=== PATIENT | female | born 1960 | race Caucasian/White ===

== ENCOUNTER 2016-12-19 08:18 | Emergency (ER) | payer OTHER ==
[~2016-12-19] VITALS: Ht 165.1 cm; Wt 86.3 kg
[2016-12-19] MEDS ORDERED: ATEN50TA9 PO (08:29)
[2016-12-19] MEDS ORDERED: IBUP-1114 PO (08:29)
[2016-12-19] MEDS ORDERED: SIMV20TA2 (08:29)
[2016-12-19] MEDS ORDERED: INVO300T (08:29)
[2016-12-19] MEDS ORDERED: FORT500T3 (08:29)
[2016-12-19] MEDS ORDERED: GLIP5TAB8 PO (08:30)
[2016-12-19] MEDS ORDERED: ALOG25TA PO (08:30)
[2016-12-19] MEDS ORDERED: ONDANSETRON 4MG/2ML VIAL (J2405) IV ONE (10:45)
[2016-12-19 11:22] LABS: ANION GAP 9 MEQ/L (8-16); BLOOD UREA NITROGEN 22 MG/DL (7-18); CALCIUM LEVEL 9.3 MG/DL (8.5-10.1); CARBON DIOXIDE LEVEL 28 MEQ/L (21-32); CHLORIDE LEVEL 103 MEQ/L (98-107); CREATININE FOR GFR 0.86 MG/DL (0.55-1.02); GLOMERULAR FILTRATION RATE > 60.0 (>51); GLUCOSE, FASTING 150 MG/DL (70-105); POTASSIUM SERUM 3.5 MEQ/L (3.5-5.1); SODIUM LEVEL 140 MEQ/L (136-145)
[2016-12-19 11:31] LABS: BASO % 0.6 % (0.0-1.0); EOS # 0.2 K/mm3 (0.0-0.50); EOS % 2.5 % (0.0-3.0); LARGE UNSTAINED CELL # 0.1 K/mm3 (0.0-0.4); LYMPH # 1.5 K/mm3 (1.5-4.5); LYMPH % 23.5 % (24.0-44.0); MEAN CORPUSCULAR HEMOGLOBIN 32.2 pg (27.0-33.0); MEAN CORPUSCULAR HGB CONC 35.1 g/dl (32.0-36.5); MEAN CORPUSCULAR VOLUME 91.7 fl (80.0-96.0); MONO # 0.4 K/mm3 (0.0-0.8); NEUTROPHILS # 4.3 K/mm3 (1.8-7.7); NEUTROPHILS % 65.4 % (36.0-66.0); PLATELET COUNT, AUTOMATED 127 k/mm3 (150-450); WHITE BLOOD COUNT 6.6 K/mm3 (4.0-10.0)
--- NOTE | 2016-12-19 14:23 | REP ---
Clinical: Positional vertigo and headaches. Technique: Standard pre and postcontrast MRI of the brain sequencing using 25 ml ProHance gadolinium based contrast. Findings: Pre and postcontrast MRI images of the brain demonstrate normal layne white differentiation, ventricles, and sulci. No abnormal signal intensity foci, mass lesion, fluid/edema, infarction or evidence for trauma noted. Midline and midbrain structures are intact and symmetric. No abnormal enhancement. Sinuses are clear. Orbits are normal. Calvarium is intact. Impression: Normal pre and postcontrast MRI of the brain. Signed by Chandler Kramer MD 12/19/2016 02:14 P
--- NOTE | 2016-12-19 14:24 | REP ---
Clinical: Positional vertigo and headaches Comparison: None Technique: Axial 3-D [id number] noncontrast source images with 3-D multiplanar re-formations. Findings: Vasculature to the bilateral hemispheres appears symmetric and normal without areas of attenuation to suggest occlusion or stenosis. No evidence for arteriovenous malformation or aneurysm. No obvious abnormality. Impression: Normal MRA of the brain. Signed by Chandler Kramer MD 12/19/2016 02:15 P
[2016-12-19] MEDS ORDERED: MECLIZINE 25 MG TABLET PO ONE (16:30)
[2016-12-19] MEDS: ONDANSETRON 4MG/2ML VIAL (J2405) IV ONE ×2 (16:30→16:57)
[2016-12-19] MEDS ORDERED: MECL-68 PO ×2 (17:18→18:03)
[2016-12-19] MEDS ORDERED: ZOFR4TAB3 PO ×2 (17:18→18:03)
[2016-12-19 18:00] VITALS: BP 145/72
--- NOTE | 2016-12-19 18:03 | ECGEPIP ---
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
--- NOTE | 2016-12-20 01:37 | REP ---
Clinical: Positional vertigo. Technique: Axial contrast enhanced 2-D [id number] source images using 25 ml ProHance gadolinium based contrast material with multiplanar MIP and MPR sequences. Findings: The bilateral common carotid arteries are symmetric and normal. Small amounts of atheromatous plaquing identified at the carotid bulbs and proximal internal/external carotid arteries bilaterally (right greater than left) without significant occlusion or narrowing. Bilateral vertebral arteries are symmetric and normal. Impression: Minimal amount of narrowing of the carotid bulbs and proximal internal carotid arteries felt to be in the less than 50% range bilaterally (right greater than left). Signed by Chandler Kramer MD 12/20/2016 01:28 A
== END 2016-12-19 18:11 | disposition home or self-care (01) ==
LOC: M ED 08:18
DX: R42 Dizziness and giddiness (principal); E11.9 Type 2 diabetes mellitus without complications; Z90.79 Acquired absence of other genital organ(s); Z90.89 Acquired absence of other organs

== ENCOUNTER → 2017-03-23 | Outpatient (CLI) | payer OTHER ==
[~2017-03-23] MED LIST: ALOG25TA PO; ATEN50TA9 PO; FORT500T3; GLIP5TAB8 PO; IBUP-1114 PO; INVO300T; MECL-68 PO; PROHANCE 279.3MG/ML 15ML VIAL (A9576) As Ordered ONE; PROHANCE 279.3MG/ML 5ML VIAL (A9576) As Ordered ONE; SIMV20TA2; ZOFR4TAB3 PO
[2017-03-23 09:35] LABS: BLOOD UREA NITROGEN 30 MG/DL (7-18); CREATININE FOR GFR 0.83 MG/DL (0.55-1.02); GLOMERULAR FILTRATION RATE > 60.0 (>51)
--- NOTE | 2017-03-23 14:26 | REP ---
MR IACS WITHOUT AND WITH CONTRAST: HISTORY: Right labyrinthitis. CONTRAST: ProHance 16.8 mL. COMPARISON: 12/19/2016 There are no areas of abnormal signal intensity in the brain. There is no intraparenchymal hemorrhage, infarct, mass, or midline shift. There is no abnormal enhancement. The ventricular system is normal in appearance. There is no extracerebral collection. There is no cerebellopontine angle mass. The inner ear structures are normal in appearance. The mastoid air cells and sinuses are clear. IMPRESSION: There is no intracranial lesion. Signed by Roberto Rebolledo MD 03/23/2017 02:33 P
== END ==
LOC: M LAB 08:46
PROVIDERS: ATTEND Otolaryngology
DX: H83.01 Labyrinthitis, right ear (principal)
CPT/HCPCS: 36415; 70553; 82565; 84520; A9576

== ENCOUNTER 2018-04-05 18:31 | Emergency (ER) | payer OTHER ==
[2018-04-05 19:07] LABS: HEMATOCRIT 40.7 % (36.0-47.0); HEMOGLOBIN 14.1 g/dl (12.0-15.5); MEAN CORPUSCULAR HEMOGLOBIN 31.1 pg (27.0-33.0); MEAN CORPUSCULAR HGB CONC 34.6 g/dl (32.0-36.5); MEAN CORPUSCULAR VOLUME 89.6 fl (80.0-96.0); PLATELET COUNT, AUTOMATED 140 10^3/uL (150-450); RED BLOOD COUNT 4.54 10^6/uL (4.00-5.40); RED CELL DISTRIBUTION WIDTH 13.1 % (11.5-14.5); WHITE BLOOD COUNT 8.7 10^3/uL (4.0-10.0)
[2018-04-05 19:34] LABS: ANION GAP 11 MEQ/L (8-16); BLOOD UREA NITROGEN 34 MG/DL (7-18); CALCIUM LEVEL 9.7 MG/DL (8.5-10.1); CARBON DIOXIDE LEVEL 27 MEQ/L (21-32); CHLORIDE LEVEL 100 MEQ/L (98-107); CREATININE FOR GFR 0.91 MG/DL (0.55-1.30); GLOMERULAR FILTRATION RATE > 60.0 (>51); GLUCOSE, FASTING 99 MG/DL (70-100); POTASSIUM SERUM 3.7 MEQ/L (3.5-5.1); SODIUM LEVEL 138 MEQ/L (136-145)
[2018-04-05] MEDS ORDERED: ISOVUE-370 76% 100ML VIAL (Q9967) As Ordered (19:53)
[2018-04-05] MEDS: NS 1,000 ML IV (20:02)
[2018-04-05 20:13] LABS: KETONE, URINE AUTO RFX NEGATIVE (NEGATIVE); LEUKOCYTE ESTERASE UR AUTO RFX NEGATIVE (NEGATIVE); NITRITE, URINE AUTO RFX NEGATIVE (NEGATIVE); RBC, URINE AUTO RFX 0 /HPF (0-3); SPECIFIC GRAVITY UR AUTO RFX 1.014 (1.002-1.035); SQUAM EPITHELIAL CELL UR AURFX 0 /HPF (0-6); WBC, URINE AUTO RFX 0 /HPF (0-3)
[2018-04-05] MEDS: NORCO 5/325MG TABLET (BULK FOR ED) PO (22:27)
== END 2018-04-05 22:39 | disposition home or self-care (01) ==
LOC: M ED 18:31
DX: K43.9 Ventral hernia without obstruction or gangrene (principal); E11.9 Type 2 diabetes mellitus without complications; I10 Essential (primary) hypertension; Z79.84 Long term (current) use of oral hypoglycemic drugs; Z79.899 Other long term (current) drug therapy; Z88.0 Allergy status to penicillin
CPT/HCPCS: Q9967

== ENCOUNTER 2018-06-16 07:45 | Day surgery (SDC) | payer OTHER ==
[~2018-06-16] VITALS: Ht 167.6 cm; Wt 82.3 kg
[~2018-06-16 07:45] MED LIST changes: +LR 1,000 ML IV ONE; +NORCOTAB PO; -PROHANCE 279.3MG/ML 15ML VIAL (A9576) As Ordered ONE; -PROHANCE 279.3MG/ML 5ML VIAL (A9576) As Ordered ONE; +STEG15TA PO; +TRAM50TA2 PO; +ZOFR4TAB14 PO; -ZOFR4TAB3 PO
[2018-06-16] MEDS ORDERED: PROPOFOL 200 MG/20 ML VIAL As Ordered ONE (08:15)
[2018-06-16] MEDS ORDERED: LIDOCAINE 2% INJ 100 MG/5 ML SDV (FOR ANES.) As Ordered ONE (08:15)
[2018-06-16] MEDS ORDERED: ROCURONIUM BROMIDE 50 MG/5 ML VIAL As Ordered ONE ×2 (08:15→12:30)
[2018-06-16] MEDS ORDERED: dexameTHASONE 4 MG/ML 1ML VIAL (J1100) As Ordered ONE (08:15)
[2018-06-16] MEDS ORDERED: ONDANSETRON 4MG/2ML VIAL (J2405) As Ordered ONE ×2 (08:15→14:18)
[2018-06-16] MEDS ORDERED: MIDAZOLAM INJ 2 MG/2 ML VIAL (J2250) As Ordered ONE (08:16)
[2018-06-16] MEDS ORDERED: fentaNYL 250 MCG/5 ML INJECTION (J3010) As Ordered ONE (08:16)
[2018-06-16] MEDS ORDERED: BUPIVACAINE LIPOSOME/PF 1.3% 20ML VIAL (13.3MG/ML)(EXPAREL)(C9290 PER1MG) As Ordered ONE (10:56)
[2018-06-16] MEDS ORDERED: BUPIVACAINE HCL 0.25% 30 ML VIAL As Ordered ONE (10:56)
[2018-06-16] MEDS ORDERED: GLYCOPYRROLATE INJ 0.2 MG/ML 2 ML VIAL As Ordered ONE ×2 (11:31→12:52)
[2018-06-16] MEDS ORDERED: KETOROLAC 60 MG/2 ML VIAL (J1885) As Ordered ONE (12:52)
[2018-06-16] MEDS ORDERED: NEOSTIGMINE 10 MG/10 ML VIAL (J2710) As Ordered ONE (12:52)
[2018-06-16] MEDS ORDERED: NORCOTAB PO (13:44)
[2018-06-16] MEDS ORDERED: NORCO, ANEXSIA 5/325MG TABLET (HYDROcodone/ACETAMINOPHEN) PO PRN (14:15)
[2018-06-16] MEDS ORDERED: IBUPROFEN 400 MG TAB PO PRN (14:15)
[2018-06-16] MEDS ORDERED: ACETAMINOPHEN TAB 650MG DOSE (2X325MG) PO PRN (14:15)
[2018-06-16] MEDS ORDERED: MEPERIDINE INJ 25 MG/ML VIAL (J2175) IV PRN (14:30)
[2018-06-16] MEDS ORDERED: ONDANSETRON 4MG/2ML VIAL (J2405) IV PRN (14:30)
[2018-06-16] MEDS ORDERED: PERCOCET 5MG/325MG TAB PO PRN (14:30)
[2018-06-16] MEDS ORDERED: LR 1,000 ML IV SCH (14:30)
[2018-06-16] MEDS ORDERED: fentaNYL 100 MCG/2 ML INJECTION (J3010) IV PRN (14:30)
[2018-06-16] MEDS ORDERED: METOCLOPRAMIDE INJ 10MG/2ML VIAL (J2765) IV PRN (14:30)
[2018-06-16 15:35] VITALS: BP 133/64
--- NOTE | 2018-06-18 13:26 | RO ---
DATE OF PROCEDURE: 06/16/2018 PREOPERATIVE DIAGNOSIS: Ventral incisional hernia. POSTOPERATIVE DIAGNOSIS: Ventral incisional hernia. PROCEDURE PERFORMED: Laparoscopic repair of a ventral incisional hernia with a 15 cm Parietex patch. SURGEON: Boris Hensley MD HR BUSINESS PARTNER: Dr. Muniz who was required for management of the camera while performing the procedure. ANESTHESIA: General. INDICATIONS FOR PROCEDURE: The patient is a 58-year-old woman who has a ventral incisional hernia, which appears to be just slightly below and to the left of the umbilicus. She is now for a laparoscopic ventral incisional hernia repair. OPERATIVE PROCEDURE: The patient was brought to the operating room and placed on the table in a supine position. She was placed under general endotracheal anesthesia. The patient's abdomen was prepped and draped in a sterile fashion. Initial entry was in the right midabdomen. Local anesthesia of 0.25% Marcaine was infiltrated and a short incision was made. A Veress needle was inserted and after positive hanging drop test the abdomen was insufflated with carbon dioxide gas. A 5 mm port was placed over a 5 mm scope and this was advanced through the abdominal wall without difficulty. Initial inspection showed some adhesions of the omentum to the anterior abdominal wall at the umbilicus and extending inferiorly from that approximately along the midline. A second 5 mm trocar was placed lower in the right lower quadrant. A harmonic scalpel was inserted and the adhesions of the omentum to the anterior abdominal wall were divided and the omentum was allowed to fall way. In the course of dissection, the patient was found to have an approximately 6-7 cm oval fascial defect beginning just below the level of the umbilicus extending inferiorly. This appeared to be slightly to the left of the midline. There were no other defects identified higher in the abdomen. The patient was tilted to a slight Trendelenburg position. At this point, I elected to make an incision along the midline just below the umbilicus. The fascial defect was such that I thought it could be closed primarily with the reinforcing mesh placed internally over top of this repair. An approximately 6 cm midline incision was made. This was deepened through the subcutaneous tissues using the cautery. A large hernia sac was identified and this was dissected free from surrounding subcutaneous fat down to the level of the fascia. The sac was sent for permanent pathology. Inspection revealed that there was an approximately 6 cm long x 4 cm wide defect. There were areas of stronger fascia along the right side of the defect with some thinner fascia on the left upper aspect of the defect. The subcutaneous tissues were elevated off of the fascia extending out from the midline approximately 5 cm on both sides to release some tension on the fascia. Trial approximation suggested that this tissue could be closed along the midline. A 15 cm Parietex patch was selected. This was moistened and then the midline was marked with a skin marker. The mesh was inserted into the abdomen through the fascial opening with the nonadherent side facing the intestine. The midline defect was then approximated with interrupted simple sutures of #1-0 Ethibond. The midpoint suture was placed early in the closure taking a small bite of the midpoint of the mesh to affix it over the center of the fascial closure. Once the defect had been completely closed, the abdomen was again inflated but only to a pressure of 8 mmHg. The laparoscope was inserted. A third 5 mm trocar was placed slightly to the left midline in the left upper quadrant. Then using SecureStrap tacker, the mesh was placed flat over the anterior abdominal wall and tacked in place. Multiple SecureStrap tacks were placed around the periphery of the mesh circumferentially with multiple tacks also along the midline and in a radial fashion from the midpoint out toward the edge. A total of 75 tacks were placed to hold the mesh in place. There was a small amount of bleeding on the left lower portion of the application which stopped after a short period of observation. Final inspection revealed no bleeding. The mesh was nicely applied flat to the anterior abdominal wall. 20 mL of Exparel was mixed with 20 mL of 0.25% Marcaine and while monitoring the injections from within the abdomen laparoscopically. This was injected widely over the area of placement of the mesh. Small amounts were injected along the trocar sites as well. The abdomen was then deflated and the trocars were removed. The infraumbilical incision was closed with some #0 chromic in the subcutaneous fat. The skin edges were brought into apposition with some buried #3-0 chromic and the skin incisions were all closed with buried #5-0 Vicryl and Steri-Strips. Light dressings were applied. The patient tolerated the procedure well without apparent complication. She was awakened in the operating room, extubated and moved to the recovery room in stable condition.
== END 2018-06-16 16:17 | disposition home or self-care (01) ==
LOC: M SDC 07:45
PROVIDERS: ATTEND Surgery
DX: K43.2 Incisional hernia without obstruction or gangrene (principal); E11.9 Type 2 diabetes mellitus without complications; K21.9 Gastro-esophageal reflux disease without esophagitis; Z79.84 Long term (current) use of oral hypoglycemic drugs; Z79.899 Other long term (current) drug therapy; Z88.0 Allergy status to penicillin
CPT/HCPCS: 49652; 88302; C1781; C9290; J1100; J1885; J2250; J2405; J2710; J3010

== ENCOUNTER 2020-07-17 09:32 | Emergency (ER) | payer OTHER ==
[~2020-07-17] VITALS: Ht 167.6 cm; Wt 79.8 kg
[~2020-07-17 09:32] MED LIST changes: +HYDR-3715 PO; -LR 1,000 ML IV ONE; -MECL-68 PO; +MECL1TAB31 PO; -NORCOTAB PO; -SIMV20TA2; +SIMV20TA22
[2020-07-17] MEDS ORDERED: PANT40TA29 (10:02)
--- NOTE | 2020-07-17 10:10 | REP ---
INDICATION: FP COMPARISON: 04/05/2018 TECHNIQUE: Axial noncontrast images from the lung bases to the pubic symphysis with coronal and sagittal reformations. This CT examination was performed using the following dose reduction techniques: Automated exposure control, adjustment of mA and/or kv according to the patient's size, and use of iterative reconstruction technique. FINDINGS: Lung bases are clear. Visualized heart and pericardium normal. Liver, spleen, pancreas, gallbladder, bilateral adrenal glands and kidneys are normal. The enteric system is unremarkable and without obstruction or acute inflammatory process. Normal terminal ileum and appendix identified in the right lower quadrant. Pelvis demonstrates normal bladder and prior hysterectomy. No ascites. No free air. No adenopathy. No focal inflammatory stranding. Abdominal aorta without aneurysm. Musculoskeletal structures demonstrate degenerative changes with evidence for prior lumbar laminectomy and posterior fixation. IMPRESSION: No acute abdominopelvic pathology appreciated. As above. <Electronically signed by Chandler Kramer > 07/17/20 [id number]
[2020-07-17] MEDS ORDERED: NS 1,000 ML IV ONE (10:45)
[2020-07-17] MEDS ORDERED: KETOROLAC 30 MG/ML 1ML VIAL IV ONE (10:45)
[2020-07-17 11:06] LABS: BASO % 0.4 % (0.0-1.0); EOS # 0.2 10^3/uL (0.0-0.5); EOS % 2.8 % (0.0-3.0); HEMATOCRIT 39.7 % (36.0-47.0); HEMOGLOBIN 12.9 g/dl (12.0-15.5); LYMPH # 1.6 10^3/uL (1.5-5.0); LYMPH % 22.3 % (24.0-44.0); MEAN CORPUSCULAR HGB CONC 32.5 g/dl (32.0-36.5); MEAN CORPUSCULAR VOLUME 86.1 fl (80.0-96.0); MONO # 0.5 10^3/uL (0.0-0.8); MONO % 7.5 % (0.0-5.0); NEUTROPHILS # 4.8 10^3/uL (1.5-8.5); NEUTROPHILS % 66.7 % (36.0-66.0); PLATELET COUNT, AUTOMATED 135 10^3/uL (150-450); RED BLOOD COUNT 4.61 10^6/uL (4.00-5.40); WHITE BLOOD COUNT 7.2 10^3/uL (4.0-10.0)
--- NOTE | 2020-07-17 11:13 | REP ---
INDICATION: r pelvic pain COMPARISON: None. TECHNIQUE: Transabdominal pelvic ultrasound using B-mode technique. FINDINGS: Bladder is collapsed. No abnormal pelvic mass lesion or fluid collection. Patient is noted to be status post hysterectomy. IMPRESSION: Unremarkable examination. No obvious pathology to the pelvis. <Electronically signed by Chandler Kramer > 07/17/20 1102
[2020-07-17 11:26] LABS: ALBUMIN 4.2 GM/DL (3.2-5.2); ALT/SGPT 86 U/L (12-78); BILIRUBIN,DIRECT 0.2 MG/DL (0.0-0.2); BILIRUBIN,TOTAL 0.7 MG/DL (0.2-1.0); BLOOD UREA NITROGEN 31 MG/DL (7-18); CALCIUM LEVEL 10.3 MG/DL (8.8-10.2); CARBON DIOXIDE LEVEL 29 MEQ/L (21-32); CHLORIDE LEVEL 100 MEQ/L (98-107); CREATININE FOR GFR 0.95 MG/DL (0.55-1.30); GLOMERULAR FILTRATION RATE > 60.0 (>45); GLUCOSE, FASTING 80 MG/DL (70-100); LIPASE 252 U/L (73-393); POTASSIUM SERUM 3.9 MEQ/L (3.5-5.1); SODIUM LEVEL 138 MEQ/L (136-145); TOTAL PROTEIN 7.8 GM/DL (6.4-8.2)
[2020-07-17 12:25] VITALS: BP 151/67
== END 2020-07-17 12:26 | disposition home or self-care (01) ==
LOC: M ED 09:32
DX: R10.9 Unspecified abdominal pain (principal); M54.9 Dorsalgia, unspecified; E11.9 Type 2 diabetes mellitus without complications; I10 Essential (primary) hypertension; Z79.84 Long term (current) use of oral hypoglycemic drugs; Z79.899 Other long term (current) drug therapy; Z88.0 Allergy status to penicillin; Z91.018 Allergy to other foods
CPT/HCPCS: 36415; 74176; 76856; 80048; 80076; 81001; 83690; 85025; 87088; 87186; 96361; 96374; 99284; J1885

== ENCOUNTER → 2021-05-20 | Outpatient (CLI) | payer OTHER ==
[~2021-05-20] MED LIST changes: +PANT40TA29; +PROHANCE 279.3MG/ML 15ML VIAL ONE; +PROHANCE 279.3MG/ML 5ML VIAL ONE
--- NOTE | 2021-05-20 14:21 | REP ---
INDICATION: RT ANKLE PAIN W/ UNCERTAIN NEOPLASM. COMPARISON: None. TECHNIQUE: Multiple sequences are obtained in the axial, coronal and sagittal planes prior to and following the intravenous administration of 16 cc ProHance.. FINDINGS: The Achilles, anterior tibial, posterior tibial, flexor hallucis longus, flexor digitorum longus and peroneal tendons are all intact. There is mild fluid surrounding the flexor hallucis longus tendon compatible with mild tenosynovitis. The anterior and posterior talofibular, calcaneofibular and deltoid ligaments appear intact. Plantar tendon appears intact. There is mild edema in the deep plantar soft tissues which may represent plantar fasciitis.. Sinus tarsi appears unremarkable. Posterior and medial to the talocalcaneal joint in the subcutaneous soft tissues there is a complex cyst which measures approximately 1.9 x 1.9 x 1.0 cm.. This demonstrates diffuse rim enhancement. There is diffuse moderate chondromalacia of the talar dome with areas of mild subchondral marrow edema. There is mild edema in the distal end of the fibula. There is mild arthritic change and subchondral marrow edema at the joint between the navicular and medial cuneiform, as well as medial cuneiform and base of 1st metatarsal, and talocalcaneal joint. IMPRESSION: Mild tenosynovitis flexor hallucis longus tendon. Mild deep plantar fasciitis. Subcutaneous complex cyst with diffuse rim enhancement in the posteromedial soft tissues at the level of the talocalcaneal joint, in a subcutaneous location. Maximum diameter 1.9 cm. Arthritic changes as above. <Electronically signed by Shoaib Wakefield > 05/20/21 [id number]
== END ==
LOC: M PLAIMG 12:24
PROVIDERS: ATTEND Podiatrist
DX: M65.871 Other synovitis and tenosynovitis, right ankle and foot (principal)

== ENCOUNTER → 2021-08-13 | Outpatient (REF) | payer OTHER ==
[~2021-08-13] MED LIST changes: -PROHANCE 279.3MG/ML 15ML VIAL ONE; -PROHANCE 279.3MG/ML 5ML VIAL ONE
[2021-08-13 22:38] LABS: APPEARANCE, URINE CLEAR (CLEAR); BACTERIA, URINE AUTO NEGATIVE (NEGATIVE); BILIRUBIN, URINE AUTO NEGATIVE (NEGATIVE); BLOOD, URINE BLOOD NEGATIVE (NEGATIVE); COLOR, URINE STRAW (YELLOW); GLUCOSE, URINE (UA) AUTO 3+ mg/dL (NEGATIVE); KETONE, URINE AUTO NEGATIVE (NEGATIVE); LEUKOCYTE ESTERASE, URINE AUTO NEGATIVE (NEGATIVE); MUCUS, URINE SMALL (NEGATIVE); NITRITE, URINE AUTO NEGATIVE (NEGATIVE); PROTEIN, URINE AUTO NEGATIVE (NEGATIVE); RBC, URINE AUTO 0 /HPF (0-3); SPECIFIC GRAVITY URINE AUTO 1.016 (1.002-1.035); SQUAMOUS EPITHELIAL CELL UR AU 0 /HPF (0-6); UROBILINOGEN, URINE AUTO 0.2 mg/dL (0.0-2.0); WBC, URINE AUTO 1 /HPF (0-3)
== END ==
LOC: M LAB 22:24
PROVIDERS: ATTEND Physician Assistant Medical
DX: N39.0 Urinary tract infection, site not specified (principal)

== ENCOUNTER → 2021-10-09 | Outpatient (CLI) | payer OTHER ==
[~2021-10-09] MED LIST changes: +LOSA25TA13 PO; +METF10004 PO; -PANT40TA29; +PANT40TA29 PO
[2021-10-09 13:07] LABS: BASO % 0.6 % (0.0-1.0); EOS # 0.1 10^3/uL (0.0-0.5); HEMOGLOBIN 11.7 g/dl (12.0-15.5); LYMPH # 1.7 10^3/uL (1.5-5.0); LYMPH % 25.4 % (24.0-44.0); MEAN CORPUSCULAR HEMOGLOBIN 27.3 pg (27.0-33.0); MEAN CORPUSCULAR HGB CONC 31.6 g/dl (32.0-36.5); MEAN CORPUSCULAR VOLUME 86.4 fl (80.0-96.0); MONO # 0.6 10^3/uL (0.0-0.8); MONO % 8.9 % (2.0-8.0); NEUTROPHILS # 4.1 10^3/uL (1.5-8.5); NEUTROPHILS % 62.6 % (36.0-66.0); PLATELET COUNT, AUTOMATED 153 10^3/uL (150-450); RED BLOOD COUNT 4.28 10^6/uL (4.00-5.40); WHITE BLOOD COUNT 6.6 10^3/uL (4.0-10.0)
[2021-10-09 13:24] LABS: ALBUMIN 3.8 GM/DL (3.2-5.2); ALT/SGPT 60 U/L (12-78); BILIRUBIN,TOTAL 0.5 MG/DL (0.2-1.0); BLOOD UREA NITROGEN 26 MG/DL (7-18); CALCIUM LEVEL 9.4 MG/DL (8.8-10.2); CARBON DIOXIDE LEVEL 31 MEQ/L (21-32); CHLORIDE LEVEL 100 MEQ/L (98-107); CREATININE FOR GFR 0.88 MG/DL (0.55-1.30); GLOMERULAR FILTRATION RATE > 60.0 (>45); GLUCOSE, FASTING 116 MG/DL (70-100); SODIUM LEVEL 137 MEQ/L (136-145); TOTAL PROTEIN 7.4 GM/DL (6.4-8.2)
== END ==
LOC: M PLALAB 09:14
PROVIDERS: ATTEND Podiatrist
DX: Z01.818 Encounter for other preprocedural examination (principal); R22.41 Localized swelling, mass and lump, right lower limb; M79.671 Pain in right foot

== ENCOUNTER → 2021-10-12 | Outpatient (CLI) | payer OTHER | LOC: M LABSMTC 10:08 | PROVIDERS: ATTEND Anesthesiology | DX: Z01.818 Encounter for other preprocedural examination (principal); Z11.52 Encounter for screening for COVID-19 ==

== ENCOUNTER → 2021-10-13 | Outpatient (CLI) | payer OTHER ==
[2021-10-13 17:41] LABS: HEMATOCRIT 36.3 % (36.0-47.0); HEMOGLOBIN 11.7 g/dl (12.0-15.5); MEAN CORPUSCULAR HEMOGLOBIN 27.9 pg (27.0-33.0); MEAN CORPUSCULAR HGB CONC 32.2 g/dl (32.0-36.5); MEAN CORPUSCULAR VOLUME 86.4 fl (80.0-96.0); PLATELET COUNT, AUTOMATED 153 10^3/uL (150-450); WHITE BLOOD COUNT 6.4 10^3/uL (4.0-10.0)
[2021-10-13 17:55] LABS: HEMOGLOBIN A1c 7.3 %
[2021-10-13 18:01] LABS: CHOLESTEROL LEVEL 175 MG/DL (<200); CHOLESTEROL RISK RATIO 4.729 (<5); FERRITIN 26 NG/ML (8-252); FREE T4 1.04 NG/DL (0.76-1.46); HDL CHOLESTEROL 37 MG/DL (>40); IRON (FE) 67 UG/DL (50-170); LDL CHOLESTEROL 70 MG/DL (<100); NON-HDL-C 138 MG/DL; PERCENT SATURATION 13.3 % (13.2-45.0); TOTAL IRON BINDING CAPACITY 502 UG/DL (250-450); TRIGLYCERIDES LEVEL 338 MG/DL (<150)
[2021-10-13 18:02] LABS: CREATININE, URINE 47.1 MG/DL; FOLATE > 24.0 NG/ML; MALB URINE SIEMENS 17.4 MG/L; MAU/CREAT RATIO 36.9 MCG/MG (0.0-30.0); VITAMIN B12 LEVEL 326 PG/ML
== END ==
LOC: M PLALAB 14:23
PROVIDERS: ATTEND Family Medicine
DX: E11.9 Type 2 diabetes mellitus without complications (principal)

== ENCOUNTER 2021-10-16 05:58 | Day surgery (SDC) | payer OTHER ==
[~2021-10-16] VITALS: Ht 167.6 cm; Wt 82.1 kg
[2021-10-16] MEDS ORDERED: VANCOMYCIN HCL 1,000 MG, VIAL MATE ADAPTER 1 EACH in NS 250 ML IV ONE (06:00)
[2021-10-16] MEDS ORDERED: LR 1,000 ML IV ONE (06:00)
[2021-10-16] MEDS ORDERED: GENTAMICIN SULF 80MG/2ML VIAL As Ordered ONE (07:10)
[2021-10-16] MEDS ORDERED: BUPIVACAINE HCL 0.5% 30ML VIAL As Ordered ONE (07:11)
[2021-10-16] MEDS ORDERED: LIDOCAINE 2% MDV 20ML VIAL As Ordered ONE (07:11)
[2021-10-16] MEDS ORDERED: dexameTHASONE 4 MG/ML 1ML VIAL (J1100 PER 1MG) As Ordered ONE ×2 (07:11→08:06)
[2021-10-16] MEDS ORDERED: HumaLOG INSULIN (NovoLOG) PER UNIT SC ONE (07:25)
[2021-10-16] MEDS ORDERED: fentaNYL 100 MCG/2 ML INJECTION As Ordered ONE (08:06)
[2021-10-16] MEDS ORDERED: LIDOCAINE 2% 100MG/5ML SDV (FOR ANES.) As Ordered ONE (08:06)
[2021-10-16] MEDS ORDERED: ONDANSETRON 4MG/2ML VIAL As Ordered ONE (08:06)
[2021-10-16] MEDS ORDERED: propofoL 200 MG/20 ML VIAL As Ordered ONE (08:06)
[2021-10-16] MEDS ORDERED: MIDAZOLAM INJ 2MG/2ML VIAL (J2250 PER 1MG) As Ordered ONE (08:06)
[2021-10-16] MEDS ORDERED: ACETAMINOPHEN 1000MG 100ML IV BTL (OFIRMEV) (J0131 PER 10MG) As Ordered ONE (08:10)
[2021-10-16] MEDS ORDERED: PHENYLephrine 500MCG 5ML (100MCG/ML) SYRINGE As Ordered ONE (08:35)
[2021-10-16] MEDS ORDERED: ePHEDrine SULFATE 25 MG/5 ML(5MG/ML) SYRINGE As Ordered ONE (08:37)
[2021-10-16] MEDS ORDERED: KETOROLAC 60MG 2ML VIAL As Ordered ONE (08:57)
[2021-10-16] MEDS ORDERED: PERCOCET 5MG/325MG TAB PO PRN (09:35)
[2021-10-16] MEDS ORDERED: ONDANSETRON 4MG/2ML VIAL IV PRN (09:35)
[2021-10-16] MEDS ORDERED: LR 1,000 ML IV SCH (09:35)
[2021-10-16] MEDS ORDERED: fentaNYL 100 MCG/2 ML INJECTION IV PRN (09:35)
[2021-10-16 11:40] VITALS: BP 155/75
== END 2021-10-16 11:55 | disposition home or self-care (01) ==
LOC: M SDC 05:58
PROVIDERS: ATTEND Podiatrist
DX: D16.9 Benign neoplasm of bone and articular cartilage, unspecified (principal); L90.5 Scar conditions and fibrosis of skin; L85.9 Epidermal thickening, unspecified; E11.621 Type 2 diabetes mellitus with foot ulcer; L97.511 Non-pressure chronic ulcer of other part of right foot limited to breakdown of skin; I10 Essential (primary) hypertension; E78.5 Hyperlipidemia, unspecified; E11.42 Type 2 diabetes mellitus with diabetic polyneuropathy; M19.90 Unspecified osteoarthritis, unspecified site; R10.13 Epigastric pain; D64.9 Anemia, unspecified; R94.31 Abnormal electrocardiogram [ECG] [EKG]; E01.0 Iodine-deficiency related diffuse (endemic) goiter; Z79.899 Other long term (current) drug therapy; Z79.84 Long term (current) use of oral hypoglycemic drugs; Z79.1 Long term (current) use of non-steroidal anti-inflammatories (NSAID); Z91.018 Allergy to other foods; Z88.0 Allergy status to penicillin
CPT/HCPCS: 28039; 88307; 88331; 97116; J0131; J1100; J1580; J1815; J1885; J2250; J2405; J3010; J3370

== ENCOUNTER → 2021-10-25 | Outpatient (CLI) | payer OTHER | LOC: M LAB 11:43 | PROVIDERS: ATTEND Physician Assistant Medical | DX: R05.9 Cough, unspecified (principal); R53.83 Other fatigue ==

== ENCOUNTER → 2022-02-10 | Outpatient (CLI) | payer OTHER | LOC: M CARPUL 14:23 | PROVIDERS: ATTEND Nurse Practitioner Adult Health | DX: R94.31 Abnormal electrocardiogram [ECG] [EKG] (principal) ==

== ENCOUNTER → 2022-11-16 | Outpatient (CLI) | payer OTHER | LOC: M PLAIMG 11:38 | PROVIDERS: ATTEND Physician Assistant | DX: M25.511 Pain in right shoulder (principal); M54.2 Cervicalgia ==

== ENCOUNTER → 2022-12-23 | Outpatient (CLI) | payer OTHER | LOC: M SOG 09:02 | PROVIDERS: ATTEND Orthopaedic Surgery | DX: M25.511 Pain in right shoulder (principal) ==

== ENCOUNTER → 2023-01-18 | Outpatient (CLI) | payer OTHER | LOC: M PLAIMG 09:20 | PROVIDERS: ATTEND Orthopaedic Surgery | DX: M17.11 Unilateral primary osteoarthritis, right knee (principal) ==

== ENCOUNTER → 2023-07-26 | Outpatient (CLI) | payer MEDICARE, OTHER ==
[~2023-07-26] MED LIST changes: +GLIP5TAB17 PO; -GLIP5TAB8 PO; +MECL-209 PO; -MECL1TAB31 PO
== END ==
LOC: M WHC 10:39
PROVIDERS: ATTEND Nurse Practitioner Adult Health
DX: E01.1 Iodine-deficiency related multinodular (endemic) goiter (principal)

== ENCOUNTER → 2024-03-07 | Outpatient (REF) | payer MEDICARE, OTHER | LOC: M SFHCDERM 13:17 | PROVIDERS: ATTEND Physician Assistant | DX: L82.0 Inflamed seborrheic keratosis (principal) ==

== ENCOUNTER 2024-06-04 11:44 | Emergency (ER) | payer MEDICAID, MEDICARE, OTHER ==
[~2024-06-04] VITALS: Ht 165.1 cm; Wt 79.5 kg
[2024-06-04] MEDS ORDERED: TRAD5TAB (11:54)
[2024-06-04] MEDS ORDERED: JARD1TAB (11:54)
[2024-06-04] MEDS: KETOROLAC 60MG 2ML VIAL IM ONE (14:54)
[2024-06-04] MEDS: methocarbamoL 500 MG TAB PO ONE (14:54)
[2024-06-04] MEDS ORDERED: METH-1164 PO (15:47)
[2024-06-04] MEDS: ACETAMINOPHEN 500 MG TAB PO ONE (15:55)
[2024-06-04 15:56] VITALS: BP 153/70; TEMP 97.9; O2SAT 98
== END 2024-06-04 16:06 | disposition home or self-care (01) ==
LOC: M ED 11:44
DX: M25.551 Pain in right hip (principal); M16.11 Unilateral primary osteoarthritis, right hip; Z88.0 Allergy status to penicillin; Z91.018 Allergy to other foods; Z79.1 Long term (current) use of non-steroidal anti-inflammatories (NSAID); Z79.84 Long term (current) use of oral hypoglycemic drugs; Z79.899 Other long term (current) drug therapy
CPT/HCPCS: 73502; 96372; 99284; J1885

== ENCOUNTER → 2024-06-21 | Outpatient (REF) | payer MEDICARE ==
[~2024-06-21] MED LIST changes: +JARD1TAB; +METH-1164 PO; +TRAD5TAB
[2024-06-21 14:33] LABS: HEMATOCRIT 35.4 % (36.0-47.0); HEMOGLOBIN 11.6 g/dl (12.0-15.5); MEAN CORPUSCULAR HEMOGLOBIN 28.7 pg (27.0-33.0); MEAN CORPUSCULAR HGB CONC 32.8 g/dl (32.0-36.5); MEAN CORPUSCULAR VOLUME 87.6 fl (80.0-96.0); PLATELET COUNT, AUTOMATED 131 10^3/uL (150-450); RED BLOOD COUNT 4.04 10^6/uL (4.00-5.40); WHITE BLOOD COUNT 6.6 10^3/uL (4.0-10.0)
[2024-06-21 15:00] LABS: ALBUMIN 3.8 G/DL (3.2-5.2); ALKALINE PHOSPHATASE 54 U/L (35-104); ALT/SGPT 52 U/L (7.0-40); AST/SGOT 34 U/L (<34); BILIRUBIN,TOTAL 0.6 MG/DL (0.3-1.2); BLOOD UREA NITROGEN 29 MG/DL (9-23); CALCIUM LEVEL 10.1 MG/DL (8.3-10.6); CARBON DIOXIDE LEVEL 28 MMOL/L (20-31); CHLORIDE LEVEL 100 MMOL/L (98-107); CHOLESTEROL LEVEL 207 MG/DL (<200); CHOLESTEROL RISK RATIO 5.49 (<5); CREATININE FOR GFR 0.81 MG/DL (0.55-1.30); GLOMERULAR FILTRATION RATE > 60.0 (>45); GLUCOSE, FASTING 100 MG/DL (74-106); HDL CHOLESTEROL 37.7 MG/DL (>40); IRON (FE) 83 UG/DL (50-170); NON-HDL-C 169.3 MG/DL; PERCENT SATURATION 19.6 % (13.2-45.0); POTASSIUM SERUM 4.1 MMOL/L (3.5-5.1); SODIUM LEVEL 138 MMOL/L (136-145); TOTAL IRON BINDING CAPACITY 423 UG/DL (250-425); TOTAL PROTEIN 7.4 G/DL (5.7-8.2); TRIGLYCERIDES LEVEL 476 MG/DL (<150)
[2024-06-21 15:02] LABS: FERRITIN 18.5 NG/ML (7.3-270.7)
[2024-06-21 15:41] LABS: HEMOGLOBIN A1c 6.9 % (4.0-6.0)
== END ==
LOC: M LABDRWAD 14:10
PROVIDERS: ATTEND Nurse Practitioner Adult Health
DX: D64.9 Anemia, unspecified (principal); I10 Essential (primary) hypertension; E11.42 Type 2 diabetes mellitus with diabetic polyneuropathy; E78.2 Mixed hyperlipidemia

== ENCOUNTER 2024-07-09 06:08 | Day surgery (SDC) | payer MEDICARE ==
[~2024-07-09] VITALS: Ht 167.6 cm; Wt 79.4 kg
[~2024-07-09 06:08] MED LIST changes: +GLIP10TA18 PO; -JARD1TAB; +JARD1TAB PO; -SIMV20TA22; +SIMV20TA22 PO; -TRAD5TAB; +TRAD5TAB PO
[2024-07-09] MEDS: FLURBIPROFEN 0.03% OPHTH SOLN 2.5 ML OS SCH (06:51)
[2024-07-09] MEDS: TETRACAINE 0.5% OPHTH SOLN 4ML OS SCH (06:51)
[2024-07-09] MEDS: CYCLOPENTOLATE 1% OPHTH SOLN 2ML BTL OS SCH (06:51)
[2024-07-09] MEDS: PHENYLEPHRINE 2.5% OPHTH SOL 2ML OS SCH (06:51)
[2024-07-09] MEDS ORDERED: LR 1,000 ML IV SCH (07:00)
[2024-07-09] MEDS ORDERED: fentaNYL 100 MCG/2 ML INJECTION As Ordered ONE (07:07)
[2024-07-09] MEDS ORDERED: MIDAZOLAM INJ 2MG/2ML VIAL As Ordered ONE (07:07)
[2024-07-09] MEDS: LIDOCAINE 1% SDV 5ML VIAL As Ordered ONE (07:51)
[2024-07-09] MEDS: CEFUROXIME 1MG/0.1ML INTRACAMERAL INJ As Ordered ONE (07:52)
[2024-07-09 08:14] VITALS: BP 112/56; TEMP 97.8; O2SAT 96
== END 2024-07-09 08:55 | disposition home or self-care (01) ==
LOC: M SDC 06:08
PROVIDERS: ATTEND Ophthalmology
DX: H25.9 Unspecified age-related cataract (principal); E11.9 Type 2 diabetes mellitus without complications; Z88.0 Allergy status to penicillin; Z91.018 Allergy to other foods; Z79.899 Other long term (current) drug therapy
CPT/HCPCS: 66984; J0697; J2250; J3010; V2632

== ENCOUNTER 2024-09-03 08:05 | Day surgery (SDC) | payer MEDICARE, MEDICAID ==
[~2024-09-03] VITALS: Ht 165.1 cm; Wt 78.7 kg
[~2024-09-03 08:05] MED LIST changes: +GLIP-320 PO; -GLIP10TA18 PO; +LR 1,000 ML IV SCH; +MELO15TA28 PO; +METF500T13 PO
[2024-09-03] MEDS ORDERED: MIDAZOLAM INJ 2MG/2ML VIAL As Ordered ONE (08:28)
[2024-09-03] MEDS ORDERED: fentaNYL 100 MCG/2 ML INJECTION As Ordered ONE (08:28)
[2024-09-03] MEDS: PHENYLEPHRINE 2.5% OPHTH SOL 2ML OD SCH (08:43)
[2024-09-03] MEDS: CYCLOPENTOLATE 1% OPHTH SOLN 2ML BTL OD SCH (08:43)
[2024-09-03] MEDS: TETRACAINE 0.5% OPHTH SOLN 4ML OD SCH (08:44)
[2024-09-03] MEDS: FLURBIPROFEN 0.03% OPHTH SOLN 2.5 ML OD SCH (08:44)
[2024-09-03] MEDS: LIDOCAINE 1% SDV 5ML VIAL As Ordered ONE (10:01)
[2024-09-03] MEDS: CEFUROXIME 1MG/0.1ML INTRACAMERAL INJ As Ordered ONE (10:05)
[2024-09-03] MEDS ORDERED: LABETALOL 100MG/20ML VIAL IV PRN (10:20)
[2024-09-03] MEDS ORDERED: hydrALAZINE 20MG/ML 1ML VIAL IV PRN (10:20)
[2024-09-03] MEDS ORDERED: ONDANSETRON 4MG 2ML VIAL IV PRN (10:20)
[2024-09-03 10:50] VITALS: BP 135/76; TEMP 97.2; O2SAT 96
== END 2024-09-03 11:11 | disposition home or self-care (01) ==
LOC: M SDC 08:05
PROVIDERS: ATTEND Ophthalmology
DX: H25.11 Age-related nuclear cataract, right eye (principal); E11.36 Type 2 diabetes mellitus with diabetic cataract; I10 Essential (primary) hypertension; E78.00 Pure hypercholesterolemia, unspecified; R32 Unspecified urinary incontinence; Z79.899 Other long term (current) drug therapy; Z79.84 Long term (current) use of oral hypoglycemic drugs; Z88.0 Allergy status to penicillin; Z91.018 Allergy to other foods; Z90.49 Acquired absence of other specified parts of digestive tract
CPT/HCPCS: 66984; J0697; J2250; J3010; V2632

== ENCOUNTER → 2024-10-23 | Outpatient (CLI) | payer MEDICARE, MEDICAID ==
[~2024-10-23] MED LIST changes: -LR 1,000 ML IV SCH
[2024-10-23 15:28] LABS: CREATININE FOR GFR 0.78 MG/DL (0.55-1.30); GLOMERULAR FILTRATION RATE 83.7 (>45)
== END ==
LOC: M PLALAB 12:37
PROVIDERS: ATTEND Orthopaedic Surgery
DX: M54.50 Low back pain, unspecified (principal)

== ENCOUNTER → 2024-10-26 | Outpatient (CLI) | payer MEDICARE, MEDICAID | LOC: M PLARAD 13:22 | PROVIDERS: ATTEND Orthopaedic Surgery | DX: M54.50 Low back pain, unspecified (principal); Z98.1 Arthrodesis status ==

== ENCOUNTER → 2024-12-31 | Outpatient (CLI) | payer MEDICARE, MEDICAID ==
[2024-12-31 13:27] LABS: BASO # 0.0 10^3/uL (0.0-0.2); BASO % 0.5 % (0.0-1.0); EOS # 0.1 10^3/uL (0.0-0.5); EOS % 2.0 % (0.0-3.0); LYMPH # 1.6 10^3/uL (1.5-5.0); LYMPH % 23.7 % (24.0-44.0); MONO # 0.6 10^3/uL (0.0-0.8); MONO % 9.1 % (2.0-8.0); NEUTROPHILS # 4.3 10^3/uL (1.5-8.5); NEUTROPHILS % 64.4 % (36.0-66.0); PLATELET COUNT, AUTOMATED 169 10^3/uL (150-450)
[2024-12-31 13:33] LABS: ALT/SGPT 61.0 U/L (7.0-40); AST/SGOT 45.0 U/L (<34); CALCIUM LEVEL 9.8 MG/DL (8.3-10.6); CARBON DIOXIDE LEVEL 26.0 MMOL/L (20-31); CHLORIDE LEVEL 98.0 MMOL/L (98-107); CHOLESTEROL LEVEL 158.0 MG/DL (<200); CHOLESTEROL RISK RATIO 4.06 (<5); CREATININE FOR GFR 0.8 MG/DL (0.55-1.30); GLOMERULAR FILTRATION RATE 81.2 (>45); LDL CHOLESTEROL 42.7 MG/DL (<100); NON-HDL-C 119.1 MG/DL; POTASSIUM SERUM 4.4 MMOL/L (3.5-5.1); SODIUM LEVEL 139.0 MMOL/L (136-145); TRIGLYCERIDES LEVEL 382.0 MG/DL (<150)
[2024-12-31 14:12] LABS: ESTIMATED AVERAGE GLUCOSE 146.0 MG/DL (60-110)
== END ==
LOC: M PLALAB 09:59
PROVIDERS: ATTEND Nurse Practitioner Adult Health
DX: Z12.11 Encounter for screening for malignant neoplasm of colon (principal); E11.42 Type 2 diabetes mellitus with diabetic polyneuropathy

== ENCOUNTER → 2025-01-16 | Outpatient (CLI) | payer MEDICARE, MEDICAID | LOC: M EKG 09:37 | PROVIDERS: ATTEND Internal Medicine Cardiovascular Disease | DX: I49.5 Sick sinus syndrome (principal) ==

== ENCOUNTER → 2025-03-19 | Outpatient (CLI) | payer MEDICARE, MEDICAID | LOC: M CARPUL 13:58 | PROVIDERS: ATTEND Internal Medicine Cardiovascular Disease | DX: I51.7 Cardiomegaly (principal); I35.0 Nonrheumatic aortic (valve) stenosis ==

== ENCOUNTER → 2025-04-26 | Outpatient (REF) | payer MEDICARE, MEDICAID ==
[2025-04-26 14:32] LABS: CALCIUM LEVEL 9.4 MG/DL (8.3-10.6); CARBON DIOXIDE LEVEL 28.0 MMOL/L (20-31); CHLORIDE LEVEL 98.0 MMOL/L (98-107); CREATININE FOR GFR 0.82 MG/DL (0.55-1.30); GLOMERULAR FILTRATION RATE 78.8 (>45); POTASSIUM SERUM 3.9 MMOL/L (3.5-5.1); SODIUM LEVEL 138.0 MMOL/L (136-145)
== END ==
LOC: M LABDRWAD 13:16
PROVIDERS: ATTEND Physician Assistant
DX: I10 Essential (primary) hypertension (principal)

== ENCOUNTER → 2025-05-01 | Outpatient (CLI) | payer MEDICARE, MEDICAID | LOC: M SLEEP HO 10:46 | PROVIDERS: ATTEND Physician Assistant | DX: I27.81 Cor pulmonale (chronic) (principal); G47.33 Obstructive sleep apnea (adult) (pediatric) ==